=== PATIENT | male | born 1955 | race Caucasian/White ===

== ENCOUNTER 2020-08-18 10:09 | Emergency (ER) | payer OTHER ==
--- NOTE | 2020-08-18 10:58 | EDM.PDOC ---
ED HPI GENERAL MEDICAL PROBLEM - General Chief Complaint: Respiratory Problem Stated Complaint: PAINFUL COUGH Time Seen by Provider: 08/18/20 10:30 Source of Information: Reports: Patient History Limitations: Reports: No Limitations - History of Present Illness INITIAL COMMENTS - FREE TEXT/NARRATIVE: Presents reporting xiphoid pain and tenderness with cough. Pain radiates left and right about 3 inches. The pain is only with cough. He has a chronic cough due to smoking and COPD. He also has a abdominal wall hernia just inferior to the xiphoid. He states that he just was cured of hepatitis C and now he and his primary care physician are making plans to get that repaired. He denies any chest pain, shortness of breath, fever, sore throat, abdominal pain, nausea vomiting diarrhea or constipation. sternum Pain Score (Numeric/FACES): 3 - Related Data Allergies Allergy/AdvReac Type Severity Reaction Status Date / Time No Known Allergies Allergy Verified 08/18/20 10:31 Home Meds: Home Meds Albuterol [Ventolin HFA] 2 puff INH Q4H PRN 08/18/20 [History] Budesonide/Formoterol [Symbicort 160-4.5 MCG] 2 puff INH BID 08/18/20 [History] Tamsulosin [Flomax] 1 tab PO DAILY 08/18/20 [History] predniSONE [Prednisone] 2 tab PO DAILY #10 tablet 08/18/20 [Rx] Past Medical History Respiratory History: Reports: COPD, SOB, Other (See Below) Other Respiratory History: emphysema Gastrointestinal History: Reports: Other (See Below) Other Gastrointestinal History: Hernia. Hep C - treated Genitourinary History: Reports: BPH Musculoskeletal History: Reports: Arthritis, Back Pain, Chronic - Infectious Disease History Infectious Disease History: Reports: Chicken Pox, Hepatitis C, Mumps Other Infectious Disease History: been treated for Hep C "Cured" Social & Family History - Family History Family Medical History: No Pertinent Family History - Tobacco Use Tobacco Use Status *Q: Current Every Day Tobacco User Years of Tobacco use: 30 Packs/Tins Daily: 0.5 - Recreational Drug Use Recreational Drug Use: No ED ROS GENERAL - Review of Systems Review Of Systems: Comprehensive ROS is negative, except as noted in HPI. ED EXAM, GENERAL - Physical Exam Exam: See Below Exam Limited By: No Limitations General Appearance: Alert, No Apparent Distress Ears: Normal External Exam Nose: Normal Inspection Throat/Mouth: Normal Inspection Head: Atraumatic, Normocephalic Neck: Normal Inspection Respiratory/Chest: No Respiratory Distress, Lungs Clear, Normal Breath Sounds, Other (Tenderness over the xiphoid and to the left and right approximately 3 cm) Cardiovascular: Normal Peripheral Pulses, Regular Rate, Rhythm, No Murmur GI/Abdominal: Normal Bowel Sounds, Soft, Non-Tender, No Organomegaly, No Distention, Other (Diastases approximately 6 centimeters midline just inferior to the xiphoid.) Back Exam: Normal Inspection Extremities: Normal Inspection Neurological: Alert, Oriented, Normal Cognition Psychiatric: Normal Affect, Normal Mood Skin Exam: Warm, Dry, Intact, Normal Color, No Rash Lymphatic: No Adenopathy Course - Vital Signs Last Recorded V/S: Last Vital Signs Temp 36.3 C 08/18/20 10:28 Pulse 84 08/18/20 10:28 Resp 20 08/18/20 10:28 BP 160/88 H 08/18/20 10:28 Pulse Ox 95 08/18/20 10:28 Departure - Departure Time of Disposition: 11:01 Disposition: Home, Self-Care 01 Condition: Good Clinical Impression: Costal chondritis - Discharge Information Referrals: Tahir Sevilla MD [Primary Care Provider] - Additional Instructions: The following information is given to patients seen in the emergency department who are being discharged to home. This information is to outline your options for follow-up care. We provide all patients seen in our emergency department with a follow-up referral. The need for follow-up, as well as the timing and circumstances, are variable d epending upon the specifics of your emergency department visit. If you don't have a primary care physician on staff, we will provide you with a referral. We always advise you to contact your personal physician following an emergency department visit to inform them of the circumstance of the visit and for follow-up with them and/or the need for any referrals to a consulting specialist. The emergency department will also refer you to a specialist when appropriate. This referral assures that you have the opportunity for follow-up care with a specialist. All of these measure are taken in an effort to provide you with optimal care, which includes your follow-up. Under all circumstances we always encourage you to contact your private physician who remains a resource for coordinating your care. When calling for follow-up care, please make the office aware that this follow-up is from your recent emergency room visit. If for any reason you are refused follow-up, please contact the [facility] at and asked to speak to the emergency department charge nurse. 1. Take your prednisone once daily for the next 5 days. 2. Follow up with your primary physician to arrange for hernia repair. 3. Stop Smoking Sepsis Event Note (ED) - Evaluation Sepsis Screening Result: No Definite Risk - Focused Exam Vital Signs: Vital Signs Temp Pulse Resp BP Pulse Ox 08/18/20 10:28 36.3 C 84 20 160/88 H 95
== END 2020-08-18 11:17 | disposition home or self-care (01) ==
LOC: MW.ED 10:09
DX: M94.0 Chondrocostal junction syndrome [Tietze] (principal); J43.9 Emphysema, unspecified; F17.210 Nicotine dependence, cigarettes, uncomplicated; Z79.899 Other long term (current) drug therapy
CPT/HCPCS: 99282; 99283

== ENCOUNTER 2021-10-15 19:27 | Emergency (ER) | payer OTHER ==
[2021-10-15] MEDS ORDERED: Albuterol/Ipratropium 3.0-0.5 MG/3 ML Neb Soln NEB ONE ×3 (19:55)
[2021-10-15 20:50] LABS: BLOOD UREA NITROGEN,BUN 14 mg/dL (7.0-18.0); CARBON DIOXIDE,CO2 21.7 mmol/L (21.0-32.0); CHLORIDE,CL 106 mmol/L (98-107); GLUCOSE RANDOM 94 mg/dL (74-106); POTASSIUM,K 4.7 mmol/L (3.5-5.1); SODIUM,NA 139 mmol/L (136-148)
[2021-10-15 20:54] LABS: CORONAVIRUS COVID-19 NAA NEGATIVE (NEGATIVE); INFLUENZA A NAA POSITIVE (NEGATIVE); INFLUENZA B NAA NEGATIVE (NEGATIVE)
[2021-10-15] MEDS ORDERED: Magnesium Oxide 400 MG Tab PO ONE (20:57)
[2021-10-15] MEDS ORDERED: predniSONE 20 MG Tab PO ONE (21:20)
[2021-10-15] MEDS ORDERED: Oseltamivir 75 MG Cap PO ONE (21:20)
== END 2021-10-15 21:45 | disposition home or self-care (01) ==
LOC: MW.ED 19:27
DX: J44.1 Chronic obstructive pulmonary disease with (acute) exacerbation (principal); J10.1 Influenza due to other identified influenza virus with other respiratory manifestations; N40.0 Benign prostatic hyperplasia without lower urinary tract symptoms; Z91.09 Other allergy status, other than to drugs and biological substances; Z79.899 Other long term (current) drug therapy; Z20.822 Contact with and (suspected) exposure to COVID-19
CPT/HCPCS: 0240U; 36415; 71045; 80053; 83605; 83735; 84484; 85025; 85379; 93005; 94640; 99285; A9270; J7620-GY